=== PATIENT | male | born 1980 | race Caucasian/White ===

== ENCOUNTER → 2018-12-22 | Outpatient (CLI) | payer MEDICAID ==
[2018-12-22] VITALS (7 sets, daily range): BP systolic 117–168; BP diastolic 77–114; PULSE 86–105
[~2018-12-22] VITALS: Ht 175.3 cm; Wt 149.7 kg
[~2018-12-22] MED LIST: BETIMOL 0.5% OPH5 ML OU; LUMIGAN 2.5 ML2.5 M1 OP; MICARDIS40 MG PO; PERCOCET 325 MG1 TAB PO; VALIUM 5MG T5 MG/TAB PO
== END ==
LOC: COL.CARD 10:35
DX: R07.89 Other chest pain (principal)
CPT/HCPCS: A9500; J2785

== ENCOUNTER 2019-01-24 11:09 | Day surgery (SDC) | payer MEDICAID ==
[2019-01-24] VITALS (9 sets, daily range): BP systolic 104–143; BP diastolic 57–95; PULSE 71–87; TEMP 98.3
[~2019-01-24] VITALS: Ht 175.4 cm; Wt 151.2 kg
[2019-01-24 11:53] LABS: MEAN CELL VOLUME 89 fl (80.0-100.0); MEAN CORPUSCULAR HGB CONC 33 g/dl (33.0-37.0); MEAN PLATELET VOLUME 9.7 fl (7.4-10.4); PLATELET COUNT 254 K/mm3 (130-400); RED BLOOD COUNT 6.11 M/mm3 (4.20-5.60); REDCELL DISTRIBUTION WIDTH-CV 13.2 % (11.5-14.5)
[2019-01-24 12:00] LABS: HEMATOCRIT 54.6 % (42.0-52.0); HEMOGLOBIN 18.2 g/dl (13.5-18.0); MEAN CORPUSCULAR HEMOGLOBIN 30 pg (27.0-31.0)
[2019-01-24] MEDS ORDERED: PROCARDIA XL 6060 MG PO (12:03)
[2019-01-24] MEDS ORDERED: ASPIRIN 81M81 MG/TA2 PO (12:04)
[2019-01-24] MEDS ORDERED: TOPROL XL 50MG50 MG PO (12:04)
[2019-01-24 12:05] LABS: PROTHROMBIN TIME 11.5 SECONDS (9.7-12.8)
[2019-01-24 12:13] LABS: CALCIUM 9.7 mg/dL (8.4-10.2); CREATININE, serum 0.83 (0.66-1.25); POTASSIUM 4.3 mmol/L (3.4-5.0)
--- NOTE | 2019-01-24 13:20 | NUR ---
Pt to procedure,report to Fabian Perez.
--- NOTE | 2019-01-24 13:27 | NUR ---
ALL MEDICATIONS GIVEN VORB WITH MD. SEE MERGE FOR ALL MEDICATION ADMIN TIMES. SEE MERGE FOR ALL RASS ASSESSMENTS DURING AND POST PROCEDURE.
--- NOTE | 2019-01-24 14:28 | NUR ---
Patient transported back to room 15 at this time. Bedside report given to HALEY Brownlee. Patient hooked up to monitoring equipment, VS stable. Patient denies any pain at this time. Visualized right groin site with RN. Site soft and nontender. Clean, dry and intact. No oozing or hematoma noted. Pedal pulses palpable. Discussed importance of bed rest and keeping head down on pillow and leg flat. Bed locked in lowest position with call light in reach.
--- NOTE | 2019-01-24 17:19 | NUR ---
Discharge instructions given to pt.pt verbalizes understanding.INT removed,catheter tip intact.Pt escorted out via wheelchair by this nurse.
== END 2019-01-24 17:20 | disposition home or self-care (01) ==
LOC: COL.CAR 11:09
PROVIDERS: Internal Medicine Interventional Cardiology
DX: I25.10 Atherosclerotic heart disease of native coronary artery without angina pectoris (principal); R94.39 Abnormal result of other cardiovascular function study; I10 Essential (primary) hypertension; R60.0 Localized edema; G47.33 Obstructive sleep apnea (adult) (pediatric); M79.604 Pain in right leg; M79.605 Pain in left leg; I25.2 Old myocardial infarction; F17.210 Nicotine dependence, cigarettes, uncomplicated; Z91.030 Bee allergy status; Z90.49 Acquired absence of other specified parts of digestive tract; Z82.49 Family history of ischemic heart disease and other diseases of the circulatory system
CPT/HCPCS: J1644; J2250; J3010; Q9967